=== PATIENT | female | born 1985 | race Caucasian/White ===

== ENCOUNTER 2023-08-15 18:01 | Outpatient (CLI) | payer BC, SELFPAY ==
[2023-08-15 18:09] LABS: Alanine Aminotransferase 16 U/L (12-78); Albumin Level 4.1 g/dl (3.5-5.0); Albumin/Globulin Ratio 1.6 (1.1-1.8); Alkaline Phosphatase 68 U/L (38-126); Aspartate Amino Transferase 21 U/L (14-36); Bilirubin,Total 0.3 mg/dl (0.2-1.3); Calcium 8.6 mg/dl (8.4-10.2); Carbon Dioxide 29 mmol/L (22.0-30.0); Chol/HDL Ratio 3.4 (1-3.5); Cholesterol 151 mg/dl (140-200); Globulin 2.5 g/dL (1.3-3.2); Glucose 139 mg/dl (74-100); HDL Cholesterol 45 mg/dl (40-60); Sodium 139 mmol/L (136-145); Total Protein,Serum 6.6 g/dl (6.3-8.2); Triglycerides 249 mg/dl (30-150); VLDL Cholesterol 50 mg/dL (0-40)
[2023-08-15 18:11] LABS: Anion Gap 10.1 mEq/L (5-15); Blood Urea Nitrogen 6 mg/dl (7-17); Chloride 104 mmol/L (98-107); Estimated Glomerular Filt Rate 140 ml/min (>60); GFR (African American) 169 ML/MIN (>60); Potassium 4.1 mmoL/L (3.5-5.1)
[2023-08-15 18:20] LABS: Direct LDL Cholesterol 70.13 mg/dL (100-129)
[2023-08-15 19:08] LABS: Thyroid Stimulating Hormone 0.46 uIU/mL (0.465-4.68)
== END 2023-08-15 23:59 ==
LOC: LAB.DROPOF 18:01
PROVIDERS: PCP Nurse Practitioner Family; Visit Provider Nurse Practitioner Family
DX: E11.9 Type 2 diabetes mellitus without complications (principal); Z13.29 Encounter for screening for other suspected endocrine disorder; Z79.85 Long-term (current) use of injectable non-insulin antidiabetic drugs
CPT/HCPCS: 80053; 80061; 83036; 84443

== ENCOUNTER 2023-09-12 14:27 | Outpatient (CLI) | payer BC, SELFPAY ==
[2023-09-12 15:48] LABS: Free T4 (Free Thyroxine) 1.47 ng/dl (0.78-2.19)
[2023-09-12 15:49] LABS: T4 (Thyroxine) 12.8 ug/dl (5.53-11.0)
[2023-09-12 16:03] LABS: Thyroid Stimulating Hormone 0.54 uIU/mL (0.465-4.68)
[2023-09-13 11:13] LABS: Thyroid Peroxidase Antibodies 71 IU/mL (0-34); Triiodothyronine (T3) Free 3.2 pg/mL (2.0-4.4)
== END 2023-09-12 23:59 ==
LOC: LAB.DROPOF 14:27
PROVIDERS: PCP Nurse Practitioner Family; Visit Provider Nurse Practitioner Family
DX: E01.0 Iodine-deficiency related diffuse (endemic) goiter (principal); R79.89 Other specified abnormal findings of blood chemistry
CPT/HCPCS: 84436; 84439; 84443; 84481; 86376; 86800

== ENCOUNTER 2024-03-24 13:03 | Outpatient (CLI) | payer BC, SELFPAY ==
[2024-03-24 13:08] LABS: Basophils % 0.7 % (0.1-2.0); Eosinophils # 0.1 K/mm3 (0.0-0.4); Eosinophils % 0.9 % (0.1-12.0); Hematocrit 36.5 % (37.0-47.0); Hemoglobin 11.6 g/dL (12.2-16.2); Lymphocytes # 1.7 K/mm3 (0.7-4.5); Lymphocytes % 25.3 % (10-50); Mean Corpuscular HGB Conc 31.8 g/dL (31.8-35.4); Mean Corpuscular Hemoglobin 29.2 pg (27.0-31.2); Mean Corpuscular Volume 91.9 fl (81-99); Monocytes # 0.4 K/mm3 (0.1-1.0); Neutrophils # 4.4 K/mm3 (1.8-7.8); Neutrophils % 67.2 % (37.0-80.0); Platelet Count 259 K/mm3 (142-424); Red Blood Count 3.97 M/mm3 (4.20-5.40); Red Cell Distribution Width 14.4 % (11.5-17.5); White Blood Count 6.5 K/mm3 (4.8-10.8)
[2024-03-24 13:36] LABS: Hemoglobin A1C 5.6 % (4.0-6.0)
[2024-03-24 13:56] LABS: 25-OH Vitamin D, Total 36.6 ng/mL (30-100)
[2024-03-24 14:04] LABS: Albumin Level 4.3 g/dl (3.5-5.0); Chloride 107 mmol/L (98-107)
[2024-03-24 14:05] LABS: Potassium 4.3 mmoL/L (3.5-5.1); Sodium 137 mmol/L (136-145)
[2024-03-24 14:07] LABS: Alanine Aminotransferase 16 U/L (12-78); Albumin/Globulin Ratio 1.5 (1.1-1.8); Alkaline Phosphatase 83 U/L (38-126); Anion Gap 12.3 mEq/L (5-15); Aspartate Amino Transferase 24 U/L (14-36); Bilirubin,Total 0.6 mg/dl (0.2-1.3); Blood Urea Nitrogen 8 mg/dl (7-17); Carbon Dioxide 22 mmol/L (22.0-30.0); Estimated Glomerular Filt Rate 180 ml/min (>60); GFR (African American) 217 ML/MIN (>60); Globulin 2.9 g/dL (1.3-3.2); Total Protein,Serum 7.2 g/dl (6.3-8.2)
[2024-03-24 14:08] LABS: Calcium 8.8 mg/dl (8.4-10.2); Chol/HDL Ratio 2.6 (1-3.5); Cholesterol 172 mg/dl (140-200); Glucose 99 mg/dl (74-100); HDL Cholesterol 66 mg/dl (40-60); Magnesium 1.8 mg/dl (1.6-2.3); Triglycerides 73 mg/dl (30-150); VLDL Cholesterol 15 mg/dL (0-40)
[2024-03-24 14:19] LABS: Erythrocyte Sedimentation Rate 76 mm/hr (0-20)
[2024-03-24 14:20] LABS: Direct LDL Cholesterol 71.71 mg/dL (100-129)
[2024-03-24 14:25] LABS: T4 (Thyroxine) 14.5 ug/dl (5.53-11.0)
[2024-03-24 14:39] LABS: Thyroid Stimulating Hormone 0.45 uIU/mL (0.465-4.68)
[2024-03-24 14:44] LABS: Uric Acid 2.3 mg/dl (2.5-6.2)
[2024-03-25 08:19] LABS: RA Latex Turbid. <10.0 IU/mL (<14.0); Thyroid Peroxidase Antibodies 105 IU/mL (0-34); Triiodothyronine (T3) Free 3.3 pg/mL (2.0-4.4)
[2024-03-25 14:27] LABS: Thyroglobulin Level 8.3 IU/mL (0.0-0.9)
[2024-03-26 14:16] LABS: Antinuclear Antibodies, IFA Negative (.)
== END 2024-03-24 23:59 | disposition home or self-care (01) ==
LOC: LAB.DROPOF 13:04
PROVIDERS: PCP Nurse Practitioner Family; Visit Provider Nurse Practitioner Family
DX: R79.89 Other specified abnormal findings of blood chemistry (principal); M25.50 Pain in unspecified joint; M79.7 Fibromyalgia; E11.9 Type 2 diabetes mellitus without complications
CPT/HCPCS: 80053; 80061; 82306; 83036; 83735; 84436; 84443; 84481; 84550; 85025; 85651; 86038; 86376; 86431; 86800

== ENCOUNTER 2024-04-22 16:32 | Outpatient (CLI) | payer BC, SELFPAY ==
[2024-04-22 17:13] LABS: Alanine Aminotransferase 17 U/L (12-78); Alkaline Phosphatase 64 U/L (38-126); Aspartate Amino Transferase 22 U/L (14-36); Bilirubin,Total 0.6 mg/dl (0.2-1.3); Blood Urea Nitrogen 9 mg/dl (7-17); Chloride 107 mmol/L (98-107); Estimated Glomerular Filt Rate 112 ml/min (>60); GFR (African American) 136 ML/MIN (>60); Glucose 142 mg/dl (74-100); Potassium 3.6 mmoL/L (3.5-5.1); Sodium 137 mmol/L (136-145); Total Protein,Serum 6.8 g/dl (6.3-8.2)
[2024-04-22 17:14] LABS: Albumin Level 4.2 g/dl (3.5-5.0); Albumin/Globulin Ratio 1.6 (1.1-1.8); Anion Gap 8.6 mEq/L (5-15); Carbon Dioxide 25 mmol/L (22.0-30.0); Globulin 2.6 g/dL (1.3-3.2)
[2024-04-22 17:18] LABS: C-Reactive Protein 11.6 mg/L (0-4)
[2024-04-22 17:19] LABS: D-Dimer 0.32 ug/mL (0.0-0.5)
[2024-04-22 17:29] LABS: T4 (Thyroxine) 12.8 ug/dl (5.53-11.0)
[2024-04-22 17:43] LABS: Thyroid Stimulating Hormone 0.29 uIU/mL (0.465-4.68)
[2024-04-22 17:45] LABS: Basophils % 0.5 % (0.1-2.0); Eosinophils # 0.1 K/mm3 (0.0-0.4); Eosinophils % 0.9 % (0.1-12.0); Hematocrit 34.2 % (37.0-47.0); Hemoglobin 10.7 g/dL (12.2-16.2); Lymphocytes # 1.4 K/mm3 (0.7-4.5); Lymphocytes % 20.2 % (10-50); Mean Corpuscular HGB Conc 31.3 g/dL (31.8-35.4); Mean Corpuscular Hemoglobin 28.8 pg (27.0-31.2); Mean Platelet Volume 7.2 fl (7.4-10.4); Monocytes # 0.4 K/mm3 (0.1-1.0); Monocytes % 6.3 % (1.7-9.3); Neutrophils # 5.1 K/mm3 (1.8-7.8); Neutrophils % 72.1 % (37.0-80.0); Platelet Count 274 K/mm3 (142-424); Red Blood Count 3.71 M/mm3 (4.20-5.40); Red Cell Distribution Width 14.1 % (11.5-17.5)
[2024-04-24 08:51] LABS: Triiodothyronine (T3) Free 2.9 pg/mL (2.0-4.4)
== END 2024-04-22 23:59 | disposition home or self-care (01) ==
LOC: LAB 16:33
PROVIDERS: PCP Nurse Practitioner Family; Visit Provider Nurse Practitioner Family
DX: R06.09 Other forms of dyspnea (principal); R53.83 Other fatigue; E06.9 Thyroiditis, unspecified; R79.89 Other specified abnormal findings of blood chemistry
CPT/HCPCS: 36415; 80050; 80053; 84436; 84443; 84481; 85025; 85378; 86140

== ENCOUNTER 2024-08-22 09:03 | Outpatient (CLI) | payer OTHER, SELFPAY ==
[2024-08-22 09:36] LABS: Blood Urea Nitrogen 9 mg/dl (7-17); Estimated Glomerular Filt Rate 138 ml/min (>60); GFR (African American) 167 ML/MIN (>60)
== END 2024-08-22 23:59 | disposition home or self-care (01) ==
LOC: RAD 09:03
PROVIDERS: PCP Nurse Practitioner Family; Visit Provider Nurse Practitioner Family
DX: Z01.812 Encounter for preprocedural laboratory examination (principal)
CPT/HCPCS: 36415; 82565; 84520

== ENCOUNTER 2024-12-17 14:43 | Outpatient (CLI) | payer BC, SELFPAY ==
[2024-12-17 18:40] LABS: Creatinine,Urine Random 55 mg/dL (Not Estab.); Hemoglobin A1C 10.4 % (4.0-6.0); Microalbumin < 6.000 mg/L (0-16.7)
[2024-12-17 19:24] LABS: Alanine Aminotransferase 15 U/L (12-78); Albumin Level 4.4 g/dl (3.5-5.0); Albumin/Globulin Ratio 1.8 (1.1-1.8); Anion Gap 13.3 mEq/L (5-15); Aspartate Amino Transferase 19 U/L (14-36); Bilirubin,Total 0.4 mg/dl (0.2-1.3); Blood Urea Nitrogen 9 mg/dl (7-17); Carbon Dioxide 23 mmol/L (22.0-30.0); Chloride 103 mmol/L (98-107); Cholesterol 167 mg/dl (140-200); Estimated Glomerular Filt Rate 179 ml/min (>60); GFR (African American) 216 ML/MIN (>60); Globulin 2.5 g/dL (1.3-3.2); Glucose 246 mg/dl (74-100); HDL Cholesterol 63 mg/dl (40-60); Magnesium 1.9 mg/dl (1.6-2.3); Potassium 4.3 mmoL/L (3.5-5.1); Sodium 135 mmol/L (136-145); Total Protein,Serum 6.9 g/dl (6.3-8.2); Triglycerides 128 mg/dl (30-150); VLDL Cholesterol 26 mg/dL (0-40)
[2024-12-17 19:25] LABS: Alkaline Phosphatase 119 U/L (38-126); Chol/HDL Ratio 2.7 (1-3.5)
[2024-12-17 19:40] LABS: Direct LDL Cholesterol 81.03 mg/dL (100-129)
[2024-12-17 19:43] LABS: 25-OH Vitamin D, Total 31.6 ng/mL (30-100)
[2024-12-17 19:53] LABS: Thyroid Stimulating Hormone 0.97 uIU/mL (0.465-4.68)
== END 2024-12-17 23:59 | disposition home or self-care (01) ==
LOC: LAB.DROPOF 22:56
PROVIDERS: PCP Nurse Practitioner Family; Visit Provider Nurse Practitioner Family
DX: E06.9 Thyroiditis, unspecified (principal); E11.9 Type 2 diabetes mellitus without complications; R00.2 Palpitations
CPT/HCPCS: 80053; 80061; 82043; 82306; 82570; 83036; 83735; 84443

== ENCOUNTER 2024-12-24 10:08 | Outpatient (CLI) | payer BC, SELFPAY | END 2024-12-24 23:59 | disposition home or self-care (01) | LOC: RT 10:09 | PROVIDERS: PCP Nurse Practitioner Family; Visit Provider Physician Assistant | DX: I49.1 Atrial premature depolarization (principal); I49.3 Ventricular premature depolarization | CPT/HCPCS: 93270 ==

== ENCOUNTER 2025-02-11 09:25 | Outpatient (CLI) | payer OTHER, SELFPAY ==
--- OUTSIDE RECORDS SUMMARY | 2025-02-11 09:27 | XMS_ITS | Data Portability ---
Author Organization [facility] Address [address] [place] [address] Assessment No assessment recorded. Plan of Treatment Reminders Order Date Submit Date Provider Last Modified By Organization Details Last Modified Time Details Appointments None recorded. Lab rapid SARS CoV + SARS CoV 2 Ag, QL IA, respirator y specimen 2020 [email or web address] Primary [facility], [address] [place] [address], [place], [address], 09:45:41 Referral None recorded. Procedures None recorded. Surgeries None recorded. Imaging None recorded. Medication Orders fluticason e propionate 50 mcg/actuat ion nasal spray,susp ension 2020 INTERFACE [facility] [place], [address], 09:45:48 Tessalon Perles 100 mg capsule 2020 INTERFACE [facility] [place], [address], 09:45:52 Patient TargetsNo targets recorded. Patient Instructions Encounter Date Encounter Id Patient Instructions Last Modified By Organization Details Last Modified Time 08/02/2020 [id number] chronic sinusitis: care instructions [email or web address] Not available 08/02/2020 09:45:41 Reason for Referral None Reported. Results Created Date Observation Date Name Description Value Unit Range Abnormal Flag Note LastModifiedBy Organization Detail LastModifiedTime 08/02/19 21 08/02/2020 rapid SARS CoV + SARS CoV 2 Ag, QL IA, respi rator y speci men SARS CoV antigen Negati ve Not Available [facility] [address], [place], [address], 08/02/2020 09:03:18 Result Notes None recorded. Problems Name Problem SNOMED Code Status Onset Date Resolution Date Notes Provider Name and Address Organization Details Recorded Time Diabetes mellitus [id number] Active [address] E[address] [place], [place] - [facility] 09:02:00 Problem Notes None recorded. Medical Equipment None Reported. Allergies No known drug allergies Medications Name Sig Start Date Stop Date Status Note LastModified by Organization Details LastModified Time prednisone 10 mg tablet active Not Available Not Available Not Available azithromyci n 250 mg tablet TAKE 2 TABLETS BY MOUTH ON DAY 1 AND THEN TAKE 1 TABLET BY MOUTH ONCE A DAY ON DAY 2 THROUGH DAY 5 08/02 completed Not Available Not Available Not Available fluconazole 150 mg tablet active Not Available Not Available Not Available ondansetron HCl 8 mg tablet active Not Available Not Available Not Available glipizide 10 mg tablet TAKE 1 TABLET BY MOUTH ONCE DAILY active Not Available Not Available No t Available ondansetron 8 mg disintegrat ing tablet active Not Available Not Available N ot Available Tessalon Perles 100 mg capsule Take 1 capsule 3 times a day by oral route as needed. 2020 active Not Available Not Available Not Avai lable metformin 1,000 mg tablet TAKE 1 TABLET BY MOUTH TWICE DAILY active Not Available Not Available No t Available promethazin e 25 mg tablet active Not Available Not Available Not Available diclofenac sodium 75 mg tablet,alden yed release TAKE (1) TABLET BY MOUTH TWICE A DAY NEEDED FOR PAIN active Not Available Not Available No t Available metoprolol succinate ER 25 mg tablet,exte nded release 24 hr TAKE 1 TABLET BY MOUTH ONCE DAILY. active Not Available Not Available No t Available methylpredn isolone 4 mg tablets in a dose pack TAKE 6 TABS ON DAY 1, TAKE 5 TABS ON DAY 2, TAKE 4 TABS ON DAY 3, TAKE 3 TABS ON DAY 4, TAKE 2 TABS ON DAY 5, TAKE 1 ON DAY 6. TAKE WITH FOOD. active Not Available Not Available No t Available methimazole 10 mg tablet TAKE 1 TABLET BY MOUTH DAILY. active Not Available Not Available No t Available ondansetron 4 mg disintegrat ing tablet active Not Available Not Available N ot Available cefdinir 300 mg capsule TAKE (1) CAPSULE BY MOUTH TWICE DAILY FOR 10 DAYS. active Not Available Not Available No t Available fluticasone propionate 50 mcg/actuati on nasal spray,suspe nsion [place] 1 spray every day by intranasa l route. active Not Available Not Available No t Available duloxetine 60 mg capsule,del ayed release TAKE (1) CAPSULE BY MOUTH TWICE DAILY. active Not Available Not Available No t Available Glyxambi 25 mg-5 mg tablet TAKE 1 TABLET BY MOUTH ONCE DAILY IN THE MORNING active Not Available Not Available No t Available Ozempic 0.25 mg or 0.5 mg (2 mg/1.5 mL) subcutaneou s pen injector active Not Available Not Available Not Available Mounjaro 7.5 mg/0.5 mL subcutaneou s pen injector INJECT 0.5ML UNDER SKIN ONCE WEEKLY active Not Available Not Available No t Available Mounjaro 5 mg/0.5 mL subcutaneou s pen injector INJECT 0.5MG SUB-Q WEEKLY. active Not Available Not Available No t Available Mounjaro 10 mg/0.5 mL subcutaneou s pen injector INJECT 10MG SUB-Q ONCE WEEKLY. active Not Available Not Available No t Available Ozempic 0.25 mg or 0.5 mg (2 mg/3 mL) subcutaneou s pen injector INJECT 0.25MG SUB-Q ONCE WEEKLY active Not Available Not Available No t Available Vitals Date Recorded Body temperature Heart rate Oxygen saturation Oxygen saturation in Arterial blood by Pulse oximetry Respiratory rate Provider Name and Address Organization Details Last Updated DateTime 1 98.7 [degF] 78 /min 98 % 98 % 18 /min Chelydave Leonardo [place] - [facility] 1 12:00:38 Social History None recorded. Functional Status None recorded. Mental Status None recorded. Family History Nothing Reported. Medical History No medical history recorded. Gynecological HistoryNo gynecological history recorded. Obstetrics History GPAL:G 0 P 0 0 0 0 Past Encounters Encounter ID Performer Location Encounter Start Date Encounter Closed Date Diagnosis/Indication Diagnosis SNOMED-CT Code Diagnosis ICD10 Code Diagnosis Note [id number] JANELLE Miramontes [facility] [address] [place] [address] 08/02/2020 08:24:38 08/02/2020 09:49:00 Viral screening 479489543 Z11.59 Sinusitis 13958124 J32.9 rtc as needed or if symtpoms worsen Health Concerns Section Related Observation LastModified by Organization Detai ls LastModified Time None Recorded Concern Status LastModified by Organization Details LastModified Time None Recorded Advance Directives Directive None Recorded Payers Insurance Date Sequence Insurance Name Policy Number Policy Street Covered Member ID Street Member ID Guarantor Name 10/22/2024 1 [employer] (PPO) [id number] Haim Caba [id number] Елена Caba Notes Date Note Type Note Provider Name and Address Organization Details Recorded Time 08/02/2020 text/html COVID-19 Symptom s November 2019Reported bypatient.[email or web address]-19 Signs and Symptomscough same; fever same; shortness of breath same; headache same Quality:productive cough Duration:symptoms lasting 1 days Associated Symptoms:no sputum production;chest pain;fatigue;body aches DIMPLE Mcintosh - [facility] 08/02/2020 12:57:07 OBGyn Episode No OBEpisode recorded.
--- OUTSIDE RECORDS SUMMARY | 2025-02-11 09:27 | XMS_ITS | Data Portability ---
Author Organization [facility] DIVYA Malik [facility] Address [address] [facility] [address] [place] [address] Assessment Encounter Date Assessment Date Assessment LastModified by Organization Details LastModified Time 12/03/2017 12/03/2017 Mrs. Caba is a 32-year-old female presenting with mainly back pain, with some right lower extremity radicular complaints. Her report is fairly benign with annular tears at L3-4 and L4-5. There is no mention of direct nerve root compression. We're going to give her a military technology manager to send a new MRI to our office. I will study the imaging and reach out to Mrs. Caba with regards to our recommendatio ns. [email or web address] Not available 12/03/2017 10:17:07 Plan of Treatment Reminders Order Date Submit Date Provider Last Modified By Organization Details Last Modified Time Details Appointments None record ed. Lab None record ed. Referral None record ed. Procedures None record ed. Surgeries None record ed. Imaging None record ed. Medication Orders None record ed. Patient TargetsNo targets recorded. Patient InstructionsNo instructions recorded. Reason for Referral None Reported. Results Created Date Observation Date Name Description Value Unit Range Abnormal Flag Note LastModifiedBy Organization Detail LastModifiedTime 12/05/19 18 10/08/2017 MRI, lumba r spine , w/o contr ast No observ ation record ed. [email or web address] Not Available 12/20 17:59:19 Result Notes None recorded. Procedures Surgical History Date Name Laterality Status Provider Name and Address Organization Details Recorded Time Other completed [facility] 12/03/2017 10:00:32 Other completed [facility] 12/03/2017 10:00:54 Imaging Results None recorded. Procedure Notes None recorded. Medical Equipment None Reported. Allergies No known drug allergies Medications Name Sig Start Date Stop Date Status Note LastModified by Organization Details LastModified Time cyclobenzaprine 10 mg tablet active Not Available Not Available Not Available IBU 800 mg tablet active Not Available Not Available Not Available glipizide ER 10 mg tablet, extended release 24 hr active Not Available Not Available Not Available glipizide 10 mg tablet active Not Available Not Available Not Available Medrol (Charli) 4 mg tablets in a dose pack Take 1 dose pk by oral route. 2017 active Not Available Not Available Not Avai lable fenofibrate micronized 134 mg capsule active Not Available Not Available Not Available hydrocodone 7.5 mg-acetaminophen 325 mg tablet active Not Available Not Availabl e Not Available oseltamivir 75 mg capsule active Not Available Not Available Not Available metformin 1,000 mg tablet Two times a day active Not Available Not Available No t Available ergocalciferol (vitamin D2) 1,250 mcg (50,000 unit) capsule active Not Available Not Availabl e Not Available Jardiance 10 mg tablet active Not Available Not Available Not Available Jardiance 25 mg tablet active Not Available Not Available Not Available Trulicity 1.5 mg/0.5 mL subcutaneous pen injector active Not Available Not Available Not Available Trulicity 0.75 mg/0.5 mL subcutaneous pen injector active Not Available Not Available Not Available Vitals Date Recorded Body height Body mass index (BMI) Body weight Systolic And Diastolic Provider Name and Address Organization Details Last Updated DateTime 12/03/2017 160.02 cm 33.1 kg/m2 58848.77 g 120/80 mm[Hg] Yarelis Aleman [facility] 12/03/2017 10:01:33 Social History Question Answer Notes LastModified by Organizat ion Details LastModified Time Tobacco Smoking Status Former Smoker Yarelis Aleman [facility] 12/03/2017 09:59:47 What Was The Date Of Your Most Recent Tobacco Screening? 12/03/2017 Information n ot available 09/16/2019 Sex: Unknown Functional Status None recorded. Mental Status None recorded. Family History Nothing Reported. Medical History Condition Response Diabetes Y Gynecological HistoryNo gynecological history recorded. Obstetrics History GPAL:G 0 P 0 0 0 0 Past Encounters Encounter ID Performer Location Encounter Start Date Encounter Closed Date Diagnosis/Indication Diagnosis SNOMED-CT Code Diagnosis ICD10 Code Diagnosis Note [id number] MYNOR DUMONT MD [facility] [address] [place] [address] 12/03/2017 08:59:39 12/03/2017 11:41:49 Low back pain 147140569 M54.5 Minutes spent reviewing images, discussing the diagnosis and coordinati ng care: 30 min Lumbar radiculopathy 128 844418 M54.16 Health Concerns Section Related Observation LastModified by Organization Detai ls LastModified Time None Recorded Concern Status LastModified by Organization Details LastModified Time None Recorded Advance Directives Directive None Recorded Payers Insurance Date Sequence Insurance Name Policy Number Policy Street Covered Member ID Street Member ID Guarantor Name 06/23/2020 1 [employer] [id number] Haim Caba [id number] Елена Caba 12/19/2017 2 [employer] [id number] Елена Caba [id number] Елена Caba Notes Date Note Type Note Provider Name and Address Organization Details Recorded Time 12/03/2017 text/html Mrs. Caba is a 32-year-old female complaining of approximately 1 decade of back and intermittent right leg pain. She denies any inciting event or injury. Her pain is 10 out of 10 and described as stabbing, aching with spasms. The pain is intermittent and has been relatively stable. She denies any alleviating factors. The pain is made worse with lifting or standing on her feet. She describes some right leg weakness. She denies any loss of bowel or bladder control. She is undergone a few days of physical therapy and chiropractic manipulation at the [facility]. She saw Dr. Groves any ordered an MRI of her lumbar spine. Injections were recommended. She takes Advil as needed. She has been put on narcotic pain medication when she has had serious flareups. She presents today with a a CD containing her MRI. We were unable to open it on 3 different computers, using various software. MYNOR DUMONT MD [facility] [place], [address], [facility] 12/03/2017 10:17:43 OBGyn Episode No OBEpisode recorded.
--- OUTSIDE RECORDS SUMMARY | 2025-02-11 09:27 | XMS_ITS | Clinical Summary ---
Author Organization Healthcare Address [place] [address] Care Team Providers Care Environmental Science Instructor Name Role Phone Alyson Slaazar JANELLE Primary Care Provider [phone] Family History Medical History Relation Name Comments Diabetes Mother Diabetes Mother's Sister Relation Name Status Comments Mother Mother's Sister Social History Tobacco Use Types Packs/Day Years Used Date Smoking Tobacco: Never Alcohol Use Standard Drinks/Week Comments No 0 (1 standard drink = 0.6 oz pure alcohol) Alcoholic Drinks/day: Never Drank Alcohol Comments Unknown Sex and Gender Information Value Date Recorded Sex Assigned at Not on file Legal Sex Female 8:12 PM EDT Gender Identity Not on file Sexual Orientation Not on file Last Filed Vital Signs Vital Sign Reading Time Taken Comments Blood Pressure - - Pulse - - Temperature - - Respiratory Rate - - Oxygen Saturation - - Inhaled Oxygen Concentration - - Weight 78.7 kg (173 lb 9.1 oz) 07/19/2016 11:02 AM EST Height 160 cm (5' 3 ) 07/19/2016 11:09 AM EST Body Mass Index 30.75 07/19/2016 11:02 AM EST Plan of Treatment Health Maintenance Due Date Last Done Comments [facility]-Depression Screening 1986 [facility]-Infant/Child/Adol SDOH Screenings 1986 [facility]-Varicella Vaccines (1 of 2 - 13+ 2-dose series) 1999 HPV Vaccines (1 - 3-dose series) 2001 [facility]- SDOH Screenings 2004 [facility]-Adult SDOH Screenings 2004 [facility]-DTaP,Tdap,and Td Vaccine s (1 - Tdap) 2005 [facility]-Hepatitis B Vaccines (1 of 3 - 19+ 3-dose series) 2005 [facility]-Pap Smear 2007 [facility]-Cervical Cancer Screening 2016 [facility]-HPV/Cotest 2016 [facility]BY-LNYOP-48 Vaccine (1 - 20 24-25 season) 2024 [facility]-Influenza Vaccine (#1) 2025 [facility]-Zoster Vaccines (1 of 2) 2036 [facility]-HIB Vaccines Aged Out No longer e ligible based on patient's age to complete this topic [facility]-Hepatitis A Vaccines Aged Out No longer eligible based on patient's age to complete this topic [facility]-IPV Vaccines Aged Out No longer e ligible based on patient's age to complete this topic [facility]-Pneumococcal Vaccine: Pediatrics (0 to 5 Years) and At-Risk Patients (6 to 49 Years) Aged Out No long er eligible based on patient's age to complete this topic [facility]-Rotavirus Vaccines Aged Out No lo nger eligible based on patient's age to complete this topic Insurance ANTHEM Care Teams Environmental Science Instructor Relationship Specialty Start Date End Date Alyson Salazar APRN [address] [place] [address] PCP - General 12/10/20
--- OUTSIDE RECORDS SUMMARY | 2025-02-11 09:27 | XMS_ITS | Clinical Summary ---
Author Organization [facility] Phone Care Team Providers Care Electronics Technician Apprentice Name Role Phone Unavailable Primary Care Provider Unavailabl e Allergies No known active allergies Medications glipiZIDE (GLUCOTROL) 10 mg Oral Tablet Take 10 mg by mouth daily. 10/05/2021 Active metFORMIN (GLUCOPHAGE) 1,000 mg Oral Tablet TAKE (1) TABLET BY MOUTH TWICE A DAY. 10/05/2021 Active GLYXAMBI 25-5 mg Oral Tablet TAKE 1 TABLET BY MOUTH EACH MORNING 10/05/2021 Active Surgical History Surgery Date Site/Laterality Comments SECTION Medical History Medical History Date Comments Diabetes mellitus (HCC) Family History Medical History Relation Name Comments Diabetes Mother Relation Name Status Comments Mother Social History Tobacco Use Types Packs/Day Years Used Date Smoking Tobacco: Former Cigarettes Q uit: 2006 Smokeless Tobacco: Never Alcohol Use Standard Drinks/Week Comments Not Currently 0 (1 standard drink = 0.6 oz pur e alcohol) Comments Unknown Sex and Gender Information Value Date Recorded Sex Assigned at Not on file Legal Sex Female 4:51 PM EST Gender Identity Not on file Sexual Orientation Not on file Obstetrics History Last Filed Vital Signs Vital Sign Reading Time Taken Comments Blood Pressure - - Pulse - - Temperature - - Respiratory Rate - - Oxygen Saturation - - Inhaled Oxygen Concentration - - Weight 79.4 kg (175 lb) 10/07/2021 10:19 AM EST Height 160 cm (5' 3 ) 10/07/2021 10:19 AM EST Body Mass Index 31 10/07/2021 10:19 AM EST Plan of Treatment Health Maintenance Due Date Last Done Comments Annual Wellness Exam 1989 DTaP/TDaP/Td (1 - Tdap) 2005 Hepatitis B Vaccine (1 of 3 - 19+ 3-dose series) 2005 Cervical Cancer Screening 2007 Pap Smear 2007 HPV/Pap Cotest 2016 COVID-19 Vaccine (4 - 4-2 5 season) 2024 08/01/2021, 11/30/2020, 11/02/2020 Influenza Vaccine (#1) 2025 Meningococcal B Vaccine Aged Out No l onger eligible based on patient's age to complete this topic Pneumococcal Vaccine 0-49 Aged Out No longer eligible based on patient's age to complete this topic [facility]
--- OUTSIDE RECORDS SUMMARY | 2025-02-11 09:27 | XMS_ITS | Data Portability ---
Author Organization [facility] ([facility] - [facility] Dana Address [address] [place] [address] Assessment Encounter Date Assessment Date Assessment LastModified by Organization Details LastModified Time 04/09/2024 04/09/2024 palpitations and fluttering of the heart. She is hyperthyroid. She has a 2/6 murmur. EKG shows normal sinus rhythm with nonspecific changes. I think we need to make sure everything structurally and functionally is okay. Short of breath and tachycardia with a murmur. We will get an echocardiogram. I am going to place 5 day Zio monitor. After she takes than off we will start metoprolol ER 25 mg daily. will also get an exercise treadmill to see if can spur any type of fluttering or palpitations and see what her functional capacity is like. Follow-up in 2 3 weeks. Meds and chart reviewed in full today PLAN: Hyperthyroid management as per primary care Five day Zio monitor Start metoprolol ER 20 mg daily after the Zio monitor comes off Echocardiogram Exercise treadmill Avoid excessive caffeine Follow-up in Cardiology Clinic in 2-3 weeks EKG today shows normal sinus rhythm no ST or T-wave changes LDL: 03/24/2024- 71 DANIELA Berry LPN, I AM SCRIBING FOR, AND IN THE OFFICE/PRESENCE OF, EL SANTIAGO MD. IEL M.D. PERFORMED THE SERVICES DESCRIBED IN THIS DOCUMENTATION, SCRIBED BY DANIELA BRANDON LPN IN MY PRESENCE, AND IT IS BOTH ACCURATE AND COMPLETE. [email or web address] Not available 04/09/2024 14:23:07 04/23/2024 04/23/2024 still with some mild dyspnea but symptoms improved since the metoprolol. We will continue this. Blood pressure and heart rate are under excellent control. The monitor showed heart rate 66-136 with an average of 95. One small run of SVT which was only 4 beats. She overall feels well. I would like to get the echocardiogram. Meds and chart reviewed in full today. I think we can hold off on the stress test at this time. Follow-up in Cardiology Clinic in 4-5 weeks. She has an issue with her back and does not think she will be able to walk on a treadmill. I think we can hold off at this time since the shortness of breath has improved and she has not having chest pain PLAN: Continue metoprolol 25 mg daily Monitor blood pressure and heart rate Avoid excessive caffeine Echocardiogram Follow-up in Cardiology Clinic in 4-5 weeks EK04/09/2024 showed normal sinus rhythm no ST or T-wave changes LDL: 03/24/2024- 71 ZIO HEART MONITOR: 6 days from 04/09/2024 to 04/14/2024 with normal sinus rhythm with a heart rate 66-136 with an average of 95. One 4 beat run of supraventricular tachycardia and no other arrhythmia IDANIELA LPN, I AM SCRIBING FOR, AND IN THE OFFICE/PRESENCE OF, EL SANTIAGO MD. I, EL SANTIAGO M.D. PERFORMED THE SERVICES DESCRIBED IN THIS DOCUMENTATION, SCRIBED BY DANIELA BRANDON LPN IN MY PRESENCE, AND IT IS BOTH ACCURATE AND COMPLETE. [email or web address] Not available 04/26/2024 10:26:58 Plan of Treatment Reminders Order Date Submit Date Provider Last Modified By Organization Details Last Modified Time Details Appointments None recorded. Lab None recorded. Referral None recorded. Procedures None recorded. Surgeries None recorded. Imaging US, echocardiog bethanie, transthorac ic, complete, w/ color flow 2023 024 lev Sahni (Centralized Scheduling), [address], [place], [address], 07:58:11 electrocard iogram 2023 024 amarjit Foreman [facility], [address] [place] [address] [address], [place], [address], 4 08:57:17 exercise stress test 2023 024 lev Sahni (Centralized Scheduling), [address] [place] [address] [place], [address], 4 07:57:43 US, echocardiog bethanie, transthorac ic, complete, w/ color flow 2023 024 lev Sahni (Centralized Scheduling), [address] [place] [address] [place], [address], 4 07:57:29 Medication Orders metoprolol succinate ER 25 mg tablet,exte nded release 24 hr 2023 024 [facility], [address] [place], [address], 4 10:41:25 Patient TargetsNo targets recorded. Patient InstructionsNo instructions recorded. Reason for Referral None Reported. Results Created Date Observation Date Name Description Value Unit Range Abnormal Flag Note LastModifiedBy Organization Detail LastModifiedTime 04/09/20 elect rocar diogr am No observ ation record ed. EDDIE [address], [place], [address], 04/09/2024 08:29:41 04/09/20 24 04/09/2024 elect rocar diogr am No observ ation record ed. [email or web address] Not Available 2023 09:27:16 05/01/20 24 04/23/2024 benigno r monit or No observ ation record ed. [email or web address] Not Available 09/2023 15:58:58 Result Notes None recorded. Problems Name Problem SNOMED Code Status Onset Date Resolution Date Notes Provider Name and Address Organization Details Recorded Time Type 2 diabetes mellitus 93197865 Active 2023 DIMPLE Garcia - [facility] & [place] 4 08:28:35 Palpitations 13012876 Active 2023 El Santiago MD [address] [place] [address],[address], [address] , [facility] & [place] 4 08:55:37 Tachycardia 5249046 Active 2023 El Santiago MD [address] [place] [address],[address] [address] [facility] & [place] 4 08:55:41 Heart murmur 52920853 Active 2023 El Santiago MD [address] [place] [address], [address] [facility] & [place] 4 08:55:56 Hyperthyroidis m 32661550 Active 2023 El Santiago MD [address] [place] [address],[address] [address] [facility] & [place] 4 08:56:25 Dyspnea on exertion 34398256 Active 2023 El Santiago MD [address] [place] [address],[address] [address] [facility] & [place] 4 08:56:35 Problem Notes None recorded. Procedures Surgical History Date Name Laterality Status Provider Name and Address Organization Details Recorded Time ligation of bilateral fallopian tubes completed Daniela Knhselbi [facility] & [place] 04/04/2024 11:19:58 Imaging Results None recorded. Procedure Notes None recorded. Medical Equipment None Reported. Allergies No known drug allergies Medications Name Sig Start Date Stop Date Status Note LastModified by Organization Details LastModified Time sumatriptan 50 mg tablet TAKE 1 TABLET BY MOUTH AT ONSET OF HEADACHE. MAY REPEAT 1 DOSE IN 2 HOURS IF HEADACHE RETURNS OR PERSISTS *MAX 2 TABS IN 24 HOURS* active Not Available Not Available No t Available tramadol 50 mg tablet TAKE 1 TABLET EVERY 8 HOURS NEEDED FOR PAIN 04/09 completed Not Available Not Available Not Available methocarbam ol 750 mg tablet Take 1 tablet every day by oral route. active Not Available Not Available No t Available diclofenac sodium 75 mg tablet,alden yed [...] Not Available Not Available No t Available cefdinir 300 mg capsule TAKE (1) CAPSULE BY MOUTH TWICE DAILY FOR 10 DAYS. 04/09 completed Not Available Not Available Not Available fluticasone propionate 50 mcg/actuati on nasal spray,suspe nsion USE 2 SPRAYS IN EACH NOSTRIL ONCE DAILY active Not Available Not Available No t Available duloxetine 30 mg capsule,del ayed release Take 1 capsule every day by oral route. 04/09 completed Not Available Not Available Not Available duloxetine 60 mg capsule,del ayed release TAKE (1) CAPSULE BY MOUTH TWICE DAILY. active Not Available Not Available No t Available azelastine 04/09 completed Not Available Not Available Not Available Mounjaro 7.5 mg/0.5 mL subcutaneou s pen injector INJECT 0.5ML UNDER SKIN ONCE WEEKLY 04/09 completed Not Available Not Available Not Available Mounjaro 5 mg/0.5 mL subcutaneou s pen injector INJECT 0.5MG SUB-Q WEEKLY. 04/09 completed Not Available Not Available Not Available Mounjaro 10 mg/0.5 mL subcutaneou s pen injector INJECT 10MG SUB-Q ONCE WEEKLY. active Not Available Not Available No t Available Ozempic 0.25 mg or 0.5 mg (2 mg/3 mL) subcutaneou s pen injector INJECT 0.5 MG UNDER SKIN ONCE WEEKLY FOR 4 WEEKS active Not Available Not Available No t Available tirzepatide (weight loss) 10 mg/0.5 mL subcutaneou s pen injector Inject 0.5 mL every week by subcutane ous route. 04/09 completed Not Available Not Available Not Available Vitals Date Recorded Body weight Body mass index (BMI) Body height Oxygen saturation Oxygen saturation in Arterial blood by Pulse oximetry Systolic And Diastolic Provider Name and Address Organization Details Last Updated DateTime 4 46524.9 6 g 28.7 kg/m2 160.02 cm 100 % 100 % 110/68 mm[Hg] Adelaida Chioma [place] - [facility] & [place] 4 08:27:36 Date Recorded Body height Body mass index (BMI) Body weight Oxygen saturation Oxygen saturation in Arterial blood by Pulse oximetry Heart rate Systolic And Diastolic Provider Name and Address Organization Details Last Updated DateTime 4 160.02 cm 28.5 kg/m2 68112.3 7 g 100 % 100 % 87 /min 110/68 mm[Hg] Tammie domínguez [place] - [facility] & [place] 4 08:15:05 Social History None recorded. Functional Status None recorded. Mental Status None recorded. Family History Nothing Reported. Medical History Condition Response Diabetes Y Arrhythmia Y Gynecological HistoryNo gynecological history recorded. Obstetrics History GPAL:G 0 P 0 0 0 0 Past Encounters Encounter ID Performer Location Encounter Start Date Encounter Closed Date Diagnosis/Indication Diagnosis SNOMED-CT Code Diagnosis ICD10 Code Diagnosis Note [id number] El Santiago MD [address] [place] [address] 04/09/2024 08:20:08 04/09/2024 09:02:06 Essential hypertension 44442866 I10 Palpitations 55067697 R0 0.2 Tachycardia 9909809 R00. 0 Heart murmur 66339240 R0 1.1 Hyperthyroidism 54259667 E05.90 Dyspnea on exertion 6084 5006 R06.09 [id number] El Santiago MD [address] [place] [address] 04/23/2024 07:54:39 04/23/2024 08:32:31 Essential hypertension 43881732 I10 Palpitations 75492126 R0 0.2 Tachycardia 8418038 R00. 0 Heart murmur 69814633 R0 1.1 Hyperthyroidism 12945550 E05.90 Dyspnea on exertion 6084 5006 R06.09 Health Concerns Section Related Observation LastModified by Organization Detai ls LastModified Time None Recorded Concern Status LastModified by Organization Details LastModified Time None Recorded Advance Directives Directive None Recorded Payers Insurance Date Sequence Insurance Name Policy Number Policy Street Covered Member ID Street Member ID Guarantor Name 01/27/2025 1 [place] [id number] Елена Fountain [id number] Елена Fountain Notes Date Note Type Note Provider Name and Address Organization Details Recorded Time 04/09/2024 text/html new patient here for evaluation of palpitations fluttering of the heart. She has been having palpitations fluttering associated with shortness of breath. Recent diagnosis hyperthyroidism. Was told as a child she a heart murmur. She does have shortness of breath especially with the palpitations and fluttering. No chest pain pressure or tightness El Santiago MD [address] [place] [address],[address], [place], [address], [facility] 04/09/2024 14:23:52 04/23/2024 text/html new patient here for palpitations. She is actually done better since being on metoprolol. Here today to go over test results. We have not got the echocardiogram as of yet but we will reorder this. Her monitor looked good. She feels well today. No chest pain pressure or tightness El Santiago MD [address] [place] [address] Drive,[address], [place], [address], [facility] & [place] 04/26/2024 10:27:12 OBGyn Episode No OBEpisode recorded.
--- NOTE | 2025-02-11 10:00 | CA_ITS ---
APPROVED REPORT Exam: Exercise Treadmill Technologist: Lynne Dee Ht: 5 ft 3 in Wt: 178 lbs BSA: 1.84 m2 HR: 80 bpm BP: 124/73 mmHg Rhythm: NSR Stress Test Details Test: Exercise stress testing was performed using a Juaquin protocol. HR Resting HR: 80 bpm Max Heart Rate (APMHR): 182 bpm Max HR Achieved: 162 bpm Target HR (85% APMHR): 155 bpm % of APMHR: 89 Recovery HR: 97 bpm BP Resting BP: 124.0/73.0 mmHg Max BP: 160.0/88.0 mmHg Recovery BP: 112.0/75.0 mmHg ECG Resting ECG: Normal sinus rhythm, early repolarization inferiorly. Stress ECG: < 0.[address] depression Arrhythmia: None Clinical Exercise duration: 8.29 min Exercise capacity: 10.0 METs Stress ECG Conclusion 7 minutes, switched to modified protocol due to back issues. Symptoms: No chest pain Arrhythmias/Ectopy: None ST-T Changes: < 0.[address] segment changes Conclusion: Average exercise capacity. No evidence of ischemia at peak stress on ECG GXT only. No imaging. Electronically signed by : Josiane Blackburn MD 02/14/2025 15:39:25
--- NOTE | 2025-02-11 10:30 | CA_ITS ---
APPROVED REPORT EXAM: Comprehensive 2D, Doppler, and color-flow Echocardiogram Search Engine Optimizer: Savanna Jasmine CRT Ht: 5 ft 3 in Wt: 176lbs BSA: 1.83 BP: 143/66 mmHg Indications: Chest Pain, Diabetes, Palpitations, RA 2D Dimensions Left Atrium 2.96 cm LVEF (Mares's) 51.10 % RVID Base (AP4) 2.81 cm (M/F) 2.5-4.1 LV Volume 60.70 mL LVOT 1.72 cm (M/F) 1.5-2.5 LA Volume 24.30 mL LA Volume Index 13.30 mL/m2 (M/F) 16-34 EF AP4 55.60 % EF AP2 54.3 % EF BP 51.1 % GL Strain -18.7 % M-Mode Dimensions RVDd 2.71 cm (0.9-2.6) LVDd 3.72 cm (3.5-5.7) Ao Diam 3.41 cm (2.0-3.7) LVDs 2.91 cm (3.5-5.7) IVSd 1.48 cm (0.6-1.1) PWd 0.59 cm (0.6-1.1) EF (Teich) 44.80% FS 21.80% EDV (Teich) 58.90 mL TAPSE 1.27 (<1.7) ESV (Teich) 32.50 mL LV Diastology E Decel Time 81 (160-240 msec) E/A Ratio 0.67 MED E' 7.0 (>= 7 cm/sec) MED A' 5.50 cm/s E'/MED E' Ratio 7.21 (<= 14) LAT E' 10.2 (>= 10 cm/sec) LAT A' 8.20 cm/s E/LAT E' Ratio 4.95 (<= 14) Aortic Valve AoV Peak Jairo. 118.0 (50-130 cm/s) AO Peak GR. 5.60 mmHg Mitral Valve MV E Max Jairo. 50.0 (40-130 cm/s) MV A Velocity 75.0 (40-130 cm/s) E/A Ratio 0.67 MV Decel. Time 81 (160-240 ms) Tricuspid Valve TR P. Velocity 302.00 cm/s RAP Estimate 10.00 mmHg RVSP 46.40 mmHg Left Ventricle The left ventricle is normal size. The left ventricular systolic function is normal. The left ventricular ejection fraction is within the normal range. There is normal left ventricular wall thickness. There is normal LV segmental wall motion. The left ventricular diastolic function is normal. LVEF is 55%. Right Ventricle The right ventricle is normal size. The right ventricular systolic function is normal. Atria The left atrium size is normal. The right atrium size is normal. There is no Doppler evidence of interatrial shunt. Aortic Valve The aortic valve opens well. There is no aortic valvular stenosis. No aortic regurgitation is present. Mitral Valve The mitral valve is normal in structure. No evidence of mitral valve stenosis. There is no mitral valve regurgitation noted. Tricuspid Valve Tricuspid valve is grossly normal in structure and function. Trace tricuspid regurgitation. There is insufficient TR jet to estimate RVSP. Pulmonic Valve The pulmonary valve is normal in structure. Trace pulmonic regurgitation. Great Vessels The aortic root is normal in size. IVC is normal in size and collapses >50% with inspiration. Pericardium There is no pericardial effusion. Other Information Study Quality: Adequate Conclusion Normal biventricular systolic function. No significant valvular stenosis or regurgitation. Electronically signed by : Josiane Blackburn MD 02/13/2025 01:36:07
== END 2025-02-11 23:59 | disposition home or self-care (01) ==
LOC: RT 09:25
PROVIDERS: PCP Nurse Practitioner Family; Visit Provider Physician Assistant
DX: M06.9 Rheumatoid arthritis, unspecified (principal); E11.9 Type 2 diabetes mellitus without complications; R07.89 Other chest pain; R00.2 Palpitations; R06.09 Other forms of dyspnea
CPT/HCPCS: 93016; 93017; 93018; 93306

== ENCOUNTER 2025-07-13 15:13 | Outpatient (CLI) | payer OTHER, SELFPAY ==
[2025-07-13 16:10] LABS: Alanine Aminotransferase 20 U/L (12-78); Albumin Level 4.6 g/dl (3.5-5.0); Albumin/Globulin Ratio 1.5 (1.1-1.8); Alkaline Phosphatase 120 U/L (38-126); Anion Gap 15.3 mEq/L (5-15); Aspartate Amino Transferase 25 U/L (14-36); Bilirubin,Total 0.7 mg/dl (0.2-1.3); Blood Urea Nitrogen 14 mg/dl (7-17); Calcium 9.3 mg/dl (8.4-10.2); Carbon Dioxide 24 mmol/L (22.0-30.0); Chloride 102 mmol/L (98-107); Cholesterol 191 mg/dl (140-200); Creatinine,Serum 0.60 mg/dl (0.52-1.04); Estimated Glomerular Filt Rate 112 ml/min (>60); GFR (African American) 135 ML/MIN (>60); Globulin 3.0 g/dL (1.3-3.2); Glucose 159 mg/dl (74-100); HDL Cholesterol 57 mg/dl (40-60); Magnesium 1.8 mg/dl (1.6-2.3); Potassium 4.3 mmoL/L (3.5-5.1); Sodium 137 mmol/L (136-145); Total Protein,Serum 7.6 g/dl (6.3-8.2); Triglycerides 273 mg/dl (30-150)
[2025-07-13 16:40] LABS: Thyroid Stimulating Hormone 0.90 uIU/mL (0.465-4.68)
[2025-07-13 20:46] LABS: Hemoglobin A1C 8.6 % (4.0-6.0)
== END 2025-07-13 23:59 | disposition home or self-care (01) ==
LOC: LAB 15:14
PROVIDERS: PCP Nurse Practitioner Family; Visit Provider Nurse Practitioner Family
DX: E11.9 Type 2 diabetes mellitus without complications (principal)
CPT/HCPCS: 36415; 80053; 80061; 82043; 82570; 83036; 83735; 84443